=== PATIENT | female | born 1980 | race Caucasian/White ===

== ENCOUNTER → 2018-06-16 | Outpatient (CLI) | payer BC, OTHER ==
[~2018-06-16] MED LIST: GADOBENATE 529MG/1ML 15ML VIAL IVP ONE; KET10 PO; LEVO50TA80 PO; LOR5/325 PO; MET10 PO; METHO500 PO; METO10I IV; NAP550 PO; ONDA4TAB PO; PER PO
--- NOTE | 2018-06-16 10:29 | RADIOLOGY IMAGING REPORT ---
FACILITY: [facility] PATIENT NAME: Libertad Romo : 1980 MR: [id number] V: [id number] EXAM DATE: ORDERING PHYSICIAN: MALATHI LOUIE TECHNOLOGIST: Location: [facility] [place] Patient: Libertad Romo : 1980 Visit/Account:[id number] Date of Sevice: 06/16/2018 Study: MRI of the brain without and with gadolinium contrast. Indication: Altered mental status, headache Comparison study: CT scan dated July 29, 2006 Contrast used: 13 mL MultiHance gadolinium contrast Technique: Multiplanar MRI sequences were obtained through the brain before and after the administrat ion of gadolinium contrast. The examination demonstrates no evidence of acute intracranial hemorrhage. There is no evidence of ex tra-axial collection or hydrocephalus. There is no abnormal signal identified within the brain parenchyma. The pituitary gland is unremarkable in appearance. There is no evidence of abnormality of the pineal gland. A diffusion-weighted sequence was performed and demonstrates no evidence of active ischemia. There is no evidence of active infarct The orbits are unremarkable. There is a large retention cyst within the left maxillary sinus incidentally noted. Following the administration of gadolinium contrast, there is no abnormal intracranial contrast enhan cement. IMPRESSION:Unremarkable MRI of the brain without and with intravenous contrast. Report Dictated By: Flo Sr at 06/16/2018 10:19 AM Report E-Signed By: Flo Sr at 06/16/2018 10:23 AM WSN:[email or web address]
== END ==
LOC: MRI 01:10
PROVIDERS: ATTEND Family Medicine
DX: R41.82 Altered mental status, unspecified (principal)
CPT/HCPCS: 70553; A9577

== ENCOUNTER → 2018-09-02 | Outpatient (CLI) | payer OTHER ==
[~2018-09-02] MED LIST changes: -GADOBENATE 529MG/1ML 15ML VIAL IVP ONE; +IOPAMIDOL 76% 100 ML INFUS BTL 100 ML ONE
--- NOTE | 2018-09-02 17:20 | RADIOLOGY IMAGING REPORT ---
FACILITY: [facility] - [place], [place] PATIENT NAME: Libertad Romo : 1980 MR: [id number] V: [id number] EXAM DATE: ORDERING PHYSICIAN: MALATHI LOUIE TECHNOLOGIST: Location: [facility] Patient: Libertad Romo : 1980 Visit/Account:[id number] Date of Sevice: 09/02/2018 Exam type: PICC LINE INSERTION, US GUIDANCE VASCULAR ACCESS History: Need for IV antibiotic therapy Comparison: None. Findings: Informed consent was obtained. The patient's left arm was prepped and draped usual sterile fashion. Local anesthesia was accomplished with 1% lidocaine. Utilizing direct sonographic guidance the buenrostro nt left basilic vein was accessed with an 18-gauge needle. A guidewire was passed through the needle under fluoroscopic guidance. The guidewire coursed along the expected location of the left subclavi an vein then tracked along the left side of the upper mediastinum. The guidewire could not be passed to the right side of the mediastinum despite several attempts. The 4 American single lumen power PICC was trimmed to 30 cm length. The needle was removed and a A peel-away sheath was placed over the g uidewire. The catheter was advanced through the peel-away sheath to the left side of the mediastinum under fluoroscopic guidance. Intravenous contrast was then injected through the catheter demonstrat ing a left superior vena cava which drains into the right atrium. The distal tip of the catheter was in the proximal left SVC. The catheter was flushed with 5 mL of saline flush and adhered to the pat ient's arm the sterile dressing. The sonographic images were saved to PACS. The procedure was accom plished without apparent complication. The dose area product was 176.15 micro-Scott per meter squared . IMPRESSION: 1. Successful placement of a 3 cm long trimmed 4 American single lumen power PICC inserted via the buenrostro nt left basilic vein with the distal tip resting in the left superior vena cava. Report Dictated By: Zoe White MD at 09/02/2018 5:10 PM Report E-Signed By: Zoe White MD at 09/02/2018 5:16 PM WSN:[email or web address]
--- NOTE | 2018-09-02 17:21 | RADIOLOGY IMAGING REPORT ---
FACILITY: [facility] - [place] PATIENT NAME: Libertad Romo : 1980 MR: [id number] V: [id number] EXAM DATE: ORDERING PHYSICIAN: MALATHI LOUIE TECHNOLOGIST: Location: [facility] [place] Patient: Libertad Romo : 1980 Visit/Account:[id number] Date of Sevice: 09/02/2018 Exam type: PICC LINE INSERTION, US GUIDANCE VASCULAR ACCESS History: Need for IV antibiotic therapy Comparison: None. Findings: Informed consent was obtained. The patient's left arm was prepped and draped usual sterile fashion. Local anesthesia was accomplished with 1% lidocaine. Utilizing direct sonographic guidance the buenrostro nt left basilic vein was accessed with an 18-gauge needle. A guidewire was passed through the needle under fluoroscopic guidance. The guidewire coursed along the expected location of the left subclavi an vein then tracked along the left side of the upper mediastinum. The guidewire could not be passed to the right side of the mediastinum despite several attempts. The 4 Swiss single lumen power PICC was trimmed to 30 cm length. The needle was removed and a A peel-away sheath was placed over the g uidewire. The catheter was advanced through the peel-away sheath to the left side of the mediastinum under fluoroscopic guidance. Intravenous contrast was then injected through the catheter demonstrat ing a left superior vena cava which drains into the right atrium. The distal tip of the catheter was in the proximal left SVC. The catheter was flushed with 5 mL of saline flush and adhered to the pat ient's arm the sterile dressing. The sonographic images were saved to PACS. The procedure was accom plished without apparent complication. The dose area product was 176.15 micro-Scott per meter squared . IMPRESSION: 1. Successful placement of a 3 cm long trimmed 4 Swiss single lumen power PICC inserted via the buenrostro nt left basilic vein with the distal tip resting in the left superior vena cava. Report Dictated By: Zoe White MD at 09/02/2018 5:10 PM Report E-Signed By: Zoe White MD at 09/02/2018 5:16 PM WSN:[email or web address]
== END ==
LOC: US 14:07
PROVIDERS: ATTEND Family Medicine
DX: A69.22 Other neurologic disorders in Lyme disease (principal)
CPT/HCPCS: 36573; C1751; Q9967

== ENCOUNTER 2018-09-17 13:00 | Outpatient (RCR) | payer OTHER ==
[2018-08-31 13:13] VITALS: BP 121/77
[2018-08-31 14:11] VITALS: BP 124/74
[2018-09-01] MEDS: cefTRIAXone(*) 2 GM VIAL 2 GM in NS(*) 0.9% 100 ML MINI-BAG 100 ML IVPB PRN (13:13)
[2018-09-01 13:17] VITALS: BP 114/78
[2018-09-02 13:10] VITALS: BP 119/72
[2018-09-02] MEDS: cefTRIAXone(*) 2 GM VIAL 2 GM in NS(*) 0.9% 100 ML MINI-BAG 100 ML IVPB PRN (13:25)
[2018-09-02 14:04] VITALS: BP 130/74
[2018-09-03 13:09] VITALS: BP 116/75
[2018-09-03] MEDS: cefTRIAXone(*) 2 GM VIAL 2 GM in NS(*) 0.9% 100 ML MINI-BAG 100 ML IVPB PRN (13:09)
[2018-09-03 13:37] VITALS: BP 121/82
[2018-09-04] MEDS: cefTRIAXone(*) 2 GM VIAL 2 GM in NS(*) 0.9% 100 ML MINI-BAG 100 ML IVPB PRN (09:33)
[2018-09-04 09:34] VITALS: BP 112/75
[2018-09-05 09:27] VITALS: BP 132/82
[2018-09-05] MEDS: cefTRIAXone(*) 2 GM VIAL 2 GM in NS(*) 0.9% 100 ML MINI-BAG 100 ML IVPB PRN (09:27)
[2018-09-06] MEDS: cefTRIAXone(*) 2 GM VIAL 2 GM in NS(*) 0.9% 100 ML MINI-BAG 100 ML IVPB PRN (13:11)
[2018-09-06 13:20] VITALS: BP 143/82
[2018-09-06 13:51] VITALS: BP 122/71
[2018-09-07 13:04] VITALS: BP 133/92
[2018-09-07] MEDS: cefTRIAXone(*) 2 GM VIAL 2 GM in NS(*) 0.9% 100 ML MINI-BAG 100 ML IVPB PRN (13:07)
[2018-09-08] MEDS: cefTRIAXone(*) 2 GM VIAL 2 GM in NS(*) 0.9% 100 ML MINI-BAG 100 ML IVPB PRN (13:17)
[2018-09-08 13:19] VITALS: BP 149/89
[2018-09-08 13:43] VITALS: BP 138/72
[2018-09-09] MEDS: cefTRIAXone(*) 2 GM VIAL 2 GM in NS(*) 0.9% 100 ML MINI-BAG 100 ML IVPB PRN (13:20)
[2018-09-09 13:23] VITALS: BP 116/70
[2018-09-10 13:08] VITALS: BP 114/74
[2018-09-11 09:41] VITALS: BP 124/86
[2018-09-11] MEDS: cefTRIAXone(*) 2 GM VIAL 2 GM in NS(*) 0.9% 100 ML MINI-BAG 100 ML IVPB PRN (09:41)
[2018-09-12] MEDS: cefTRIAXone(*) 2 GM VIAL 2 GM in NS(*) 0.9% 100 ML MINI-BAG 100 ML IVPB PRN (09:28)
[2018-09-12 09:51] VITALS: BP 121/83
[2018-09-13] MEDS: cefTRIAXone(*) 2 GM VIAL 2 GM in NS(*) 0.9% 100 ML MINI-BAG 100 ML IVPB PRN (09:28)
[2018-09-13 09:31] VITALS: BP 114/70
[2018-09-14] MEDS: cefTRIAXone(*) 2 GM VIAL 2 GM in NS(*) 0.9% 100 ML MINI-BAG 100 ML IVPB PRN (13:15)
[2018-09-14 13:25] VITALS: BP 117/71
[2018-09-15 13:22] VITALS: BP 123/89
[2018-09-15] MEDS: cefTRIAXone(*) 2 GM VIAL 2 GM in NS(*) 0.9% 100 ML MINI-BAG 100 ML IVPB PRN (13:22)
[2018-09-15 13:46] VITALS: BP 103/56
[2018-09-16 12:14] VITALS: BP 115/69
[2018-09-16] MEDS: cefTRIAXone(*) 2 GM VIAL 2 GM in NS(*) 0.9% 100 ML MINI-BAG 100 ML IVPB PRN (12:14)
[2018-09-16 12:42] VITALS: BP 112/78
[~2018-09-17 13:00] MED LIST changes: +ALTEPLASE RECOMB 2 MG VIAL IVP PRN; +DEXTROSE 5%(*) 100 ML BAG 100 ML IVPB PRN; -IOPAMIDOL 76% 100 ML INFUS BTL 100 ML ONE; +NS(*) 0.9% 100 ML BAG 100 ML IVPB PRN; +NS(*) 0.9% 250 ML BAG 250 ML IVPB PRN; +WATER FOR INJ,STERILE 20 ML IVP PRN; +cefTRIAXone 2 GM VIAL IVP SCH
[2018-09-17 13:11] VITALS: BP 126/84
[2018-09-17] MEDS: cefTRIAXone(*) 2 GM VIAL 2 GM in NS(*) 0.9% 100 ML MINI-BAG 100 ML IVPB PRN (13:13)
[2018-09-17 13:56] VITALS: BP 138/80
[2018-09-18] MEDS: cefTRIAXone(*) 2 GM VIAL 2 GM in NS(*) 0.9% 100 ML MINI-BAG 100 ML IVPB PRN (09:06)
[2018-09-18 09:09] VITALS: BP 111/68
[2018-09-19] MEDS: cefTRIAXone(*) 2 GM VIAL 2 GM in NS(*) 0.9% 100 ML MINI-BAG 100 ML IVPB PRN (10:21)
[2018-09-19 10:26] VITALS: BP 122/92
[2018-09-20 13:05] VITALS: BP 121/84
[2018-09-20] MEDS: cefTRIAXone(*) 2 GM VIAL 2 GM in NS(*) 0.9% 100 ML MINI-BAG 100 ML IVPB PRN (13:05)
[2018-09-21] MEDS: cefTRIAXone(*) 2 GM VIAL 2 GM in NS(*) 0.9% 100 ML MINI-BAG 100 ML IVPB PRN (13:16)
[2018-09-21 13:17] VITALS: BP 126/75
[2018-09-21 13:48] VITALS: BP 106/59
[2018-09-21 13:57] VITALS: BP 146/91
[2018-09-21] MEDS ORDERED: diphenhydrAMINE 50 MG/ML VIAL ONE (14:12)
[2018-09-21 14:13] VITALS: BP 157/84
[2018-09-21 14:20] VITALS: BP 134/89
--- NOTE | 2018-09-21 14:21 | EKG ---
FACILITY: [facility] PATIENT NAME: AYE CORNELL : [id number] MR: [id number] V: [id number] EXAM DATE: ORDERING PHYSICIAN: MALATHI LOUIE TECHNOLOGIST: LUX Mark Reason : CHEST PRESSURE Blood Pressure : / mmHG Vent. Rate : 055 BPM Atrial Rate : 055 BPM P-R Int : 136 ms QRS Dur : 074 ms QT Int : 440 ms P-R-T Axes : 029 040 042 degrees QTc Int : 420 ms Sinus bradycardia Cannot rule out Anterior infarct , age undetermined Abnormal ECG No previous ECGs available Confirmed by SADIA MAS ([id number]) on 09/21/2018 2:27:20 PM Referred By: JACY Confirmed By:SADIA MAS
[2018-09-21 14:28] VITALS: BP 132/71
[2018-09-21] MEDS ORDERED: diphenhydrAMINE 50 MG/ML VIAL IVP ONE (16:15)
[2018-09-22] MEDS ORDERED: diphenhydrAMINE 50 MG/ML VIAL IVP PRN (13:15)
[2018-09-22 13:23] VITALS: BP 106/63
[2018-09-22] MEDS: cefTRIAXone(*) 2 GM VIAL 2 GM in NS(*) 0.9% 100 ML MINI-BAG 100 ML IVPB PRN (13:52)
[2018-09-22 15:06] VITALS: BP 108/67
== END 2018-10-18 11:41 | disposition home or self-care (01) ==
LOC: SPU 13:00
PROVIDERS: ATTEND Family Medicine
DX: A69.22 Other neurologic disorders in Lyme disease (principal); R00.1 Bradycardia, unspecified; R94.31 Abnormal electrocardiogram [ECG] [EKG]
CPT/HCPCS: 93005; 96365; J0696; J1200; J7050

== ENCOUNTER → 2018-09-20 | Outpatient (CLI) | payer OTHER ==
[~2018-09-20] MED LIST changes: -ALTEPLASE RECOMB 2 MG VIAL IVP PRN; -DEXTROSE 5%(*) 100 ML BAG 100 ML IVPB PRN; +IOPAMIDOL 76% 100 ML INFUS BTL 100 ML ONE; -NS(*) 0.9% 100 ML BAG 100 ML IVPB PRN; -NS(*) 0.9% 250 ML BAG 250 ML IVPB PRN; +NS(*) 0.9% 50 ML BAG 50 ML ONE; -WATER FOR INJ,STERILE 20 ML IVP PRN; -cefTRIAXone 2 GM VIAL IVP SCH
--- NOTE | 2018-09-20 10:04 | RADIOLOGY IMAGING REPORT ---
FACILITY: [facility] PATIENT NAME: Libertad Romo : 1980 MR: [id number] V: [id number] EXAM DATE: ORDERING PHYSICIAN: KEMI DUENAS TECHNOLOGIST: Location: [facility] [place] Patient: Libertad Romo : 1980 Visit/Account:[id number] Date of Sevice: 09/20/2018 CT CTA CHEST W & W/O CON HISTORY: Chest pain ADDITIONAL HISTORY: None. TECHNIQUE: CTA chest with intravenous contrast. Axial imaging acquired following administration of IV contrast timed for maximum opacification of the pulmonary arterial vasculature. Slab 3-D MIP gauri nstructed images were also created for further evaluation and interpretation. Reconstruction of the [facility] data set includes multiplanar 2-D in the sagittal and coronal planes and 3-D reconstructed eloy nal slab MIP series. 3-D images were created by the technologist.Dose Lowering Technique One of the following dose optimization techniques was utilized in the performance of this exam: Autom ated exposure control; adjustment of the mA and/or kV according to the patient's size; or use of an i terative reconstruction technique. Specific details can be referenced in the facility's radiology C T exam operational policy. CONTRAST: 75 mL Isovue-370 COMPARISON: None. FINDINGS: Lungs/pleura: There is a 5 mm intrafissural nodule along the superior medial aspect of the right chinmay or fissure likely representing an intrafissural lymph node. There is no evidence of pulmonary infiltrates pleural effusions or pneumothorax. Heart/vessels: There is no evidence of pulmonary emboli By technologist notation and IV could not be placed in the right arm despite five attempts. A new IV was started in the left arm through which contrast was injected. There are numerous collateral vein s identified in the visualized portion of the upper left arm. The contrast did enter the right atriu m through the duplicated left superior vena cava.. Contrast is also seen in the tiny branch extendin g from the left innominate vein to the right-sided superior vena cava. Mediastinum/lymph nodes: Negative. Visualized upper abdomen: Negative. Bones/soft tissues: There is an S-shaped scoliosis of the thoracic spine there is a deformity of the upper right ribs which may be congenital in nature or postsurgical Additional findings: None IMPRESSION: No evidence of pulmonary emboli There are numerous collateral veins identified in the visualized portion of the upper left arm. The contrast into the right atrium through the duplicated left superior vena cava. There is also a tiny branch extending from the left innominate vein to the right-sided superior vena cava. Additional chronic findings as described Report Dictated By: Zoe White MD at 09/20/2018 9:44 AM Report E-Signed By: Zoe White MD at 09/20/2018 10:00 AM WSN:[id number]
== END ==
LOC: CT 00:51
PROVIDERS: ATTEND Family Medicine
DX: R07.89 Other chest pain (principal)
CPT/HCPCS: 71275; J7050; Q9967